=== PATIENT | male | born 1980 | race Two or more races ===

== ENCOUNTER 2020-01-14 15:08 | Inpatient (IN) | payer SELFPAY ==
[~2020-01-14] VITALS: Ht 167.6 cm; Wt 78.9 kg
--- NOTE | 2020-01-14 15:11 | NUR ---
ED Nurse Note: Patient BRITANY from the street d/t 8-03/19 painful open sores on distal soles of bilateral feet. Patient has been walking around outside barefoot for days and states that the pain has worsened to the point that he is seeking care in the ED. Patient has hx of alcoholism and hyptertension. AxO x 4, no s/s of acute distress.
[2020-01-14] MEDS ORDERED: Neosporin Oint Ud Pkt TOP ONE (15:15)
[2020-01-14] MEDS ORDERED: Tetanus/Diptheria/Pertussis IM ONE (15:15)
[2020-01-14] MEDS ORDERED: Ketorolac 30mg Inj IV ONE (15:15)
[2020-01-14] MEDS ORDERED: Sulfacetamide 10% Opth 15ml Btl BOTH EYES ONE (15:15)
[2020-01-14] MEDS ORDERED: no home meds (15:21)
--- NOTE | 2020-01-14 15:31 | NUR ---
ED Nurse Note: 20 g IV started in right AC, blood drawn and sent to lab.
--- NOTE | 2020-01-14 15:33 | NUR ---
ED Nurse Note: x-ray at bedside.
[2020-01-14] MEDS ORDERED: Hydrogen Peroxide 473ml Bottle TOPIC ONE ×2 (15:37→15:58)
[2020-01-14] MEDS ORDERED: Sulfacetamide 10% Opth 15ml Btl ONE (15:40)
[2020-01-14 15:42] LABS: HEMATOCRIT 41.6 % (42.0-52.0); HEMOGLOBIN 14.5 G/DL (14.2-18.0); MEAN CORPUSCULAR VOLUME 95 FL (80-99); PLATELET COUNT 92 K/UL (150-450); RED BLOOD COUNT 4.39 M/UL (4.70-6.10); RED CELL DISTRIBUTION WIDTH 12.6 % (11.6-14.8); WHITE BLOOD COUNT 7.5 K/UL (4.8-10.8)
[2020-01-14 15:43] LABS: EOSINOPHILS % (AUTO) 1.6 % (0.0-3.0); LYMPHOCYTES % (AUTO) 32.2 % (20.0-45.0); MONOCYTES % (AUTO) 8.1 % (1.0-10.0)
[2020-01-14 16:00] LABS: ANION GAP 14 mmol/L (5-15); BLOOD UREA NITROGEN 9 mg/dL (7-18); CARBON DIOXIDE 27 MMOL/L (21-32); CHLORIDE 100 MMOL/L (98-107); POTASSIUM 3.5 MMOL/L (3.5-5.1); SODIUM 140 MMOL/L (136-145)
--- NOTE | 2020-01-14 16:09 | Emergency Room Report ---
History of Present Illness General Chief Complaint: General Complaint Source: Patient Present Illness HPI Patient brought by EMS for sores on his feet. States he is having difficulty ambulating at this time. There is also been drainage. Patient denies any fevers or chills recently but he is felt increased weakness. The patient drinks alcohol daily. He has been drinking today. He will not say what alcohol he does drink. Denies any nausea, vomiting or diarrhea. Denies any sore throat, cough, chest pain or abdominal pain. He has been moving his bowels without difficulty denies melena. He reports the pain is 3/10 in his foot. It is aching and worse when he tries to stand. No sore throat, palpitations, dysuria, shortness of breath, depression, anxiety , visual changes, dizziness, headache. Allergies: Coded Allergies: No Known Allergies (Unverified , 01/14/20) COVID-19 Screening Contact w/high risk pt: No Experienced COVID-19 symptoms?: No COVID-19 Testing performed FOOD SERVICE DIRECTOR: No Patient History Past Medical History: see triage record Social History: Reports: alcohol use; Denies: smoking, drug use Social History Narrative Living on the streets Reviewed Nursing Documentation: PMH: Agreed; PSxH: Agreed Nursing Documentation-PMH Past Medical History: No History, Except For Hx Hypertension: Yes Review of Systems All Other Systems: negative except mentioned in HPI Physical Exam Vital Signs Date Time Temp Pulse Resp B/P (MAP) Pulse Ox O2 Delivery O2 Flow Rate FiO2 01/14/20 15:05 98.1 92 16 133/77 (95) 96 Room Air Sp02 EP Interpretation: reviewed, normal General Appearance: no apparent distress, GCS 15, other - Plethoric Head: normocephalic, atraumatic Eyes: bilateral eye PERRL, bilateral eye EOMI, bilateral eye Scleral Injection , bilateral eye other - green d/c bilat ENT: moist mucus membranes Neck: full range of motion, supple, no meningismus Respiratory: lungs clear, normal breath sounds Cardiovascular #1: no edema, tachycardia Cardiovascular #2: 2+ radial (L), 2+ dorsalis pedis (R) - Good capillary fill, 2+ dorsalis pedis (L) - Good capillary fill Gastrointestinal: non tender, soft, overweight Genitourinary: no CVA tenderness Musculoskeletal: back normal, normal range of motion, swelling - Bilateral feet Neurologic: alert, motor strength/tone normal, manager outreach III-XII nml as tested, oriented - X2, sensory intact, cerebellar normal, speech normal Psychiatric: mood/affect normal Skin: warm/dry, other - Bilateral foot blisters with left with drainage and discoloration Medical Decision Making Diagnostic Impression: Primary Impression: Sepsis Qualified Codes: A41.9 - Sepsis, unspecified organism Additional Impressions: Cellulitis of foot Alcohol intoxication Qualified Codes: F10.929 - Alcohol use, unspecified with intoxication, unspecified Elevated lipase Conjunctivitis Qualified Codes: H10.33 - Unspecified acute conjunctivitis, bilateral Rhabdomyolysis Qualified Codes: T79.6XXA - Traumatic ischemia of muscle, initial encounter ER Course Patient presents with bilateral foot pain history of alcohol ingestion. Differential includes osteomyelitis, cellulitis, infected blisters, sepsis amongst others. In addition the patient appears to be mildly under the influence of alcohol. In addition his eyes appear to be infected with conjunctivitis. Evaluation with EKG, chest x-ray, foot x-rays and labs. Blood cultures and wound culture will be obtained. Patient treated with IV hydration , tetanus vaccination, bacitracin and cleaning of wounds. EKG was sinus tachycardia. Chest x-ray no infiltrates. Left foot x-ray with soft tissue swelling without gas or apparent involvement of the bones. Normal white count. Elevated sed rate. Elevated lipase. Elevated liver function tests. COVID-19 test negative. Called with elevated lactic acid 1605. Bolus ordered and broadened antibiotics. Patient improved with decreased lactic acid. Patient admitted to medical floor for continued antibiotics and wound care. Laboratory Tests Test 01/14/20 15:25 01/14/20 15:30 01/14/20 16:12 White Blood Count 7.5 K/UL (4.8-10.8) Red Blood Count 4.39 M/UL (4.70-6.10) L Hemoglobin 14.5 G/DL (14.2-18.0) Hematocrit 41.6 % (42.0-52.0) L Mean Corpuscular Volume 95 FL (80-99) Mean Corpuscular Hemoglobin 33.0 PG (27.0-31.0) H Mean Corpuscular Hemoglobin Concent 34.9 G/DL (32.0-36.0) Red Cell Distribution Width 12.6 % (11.6-14.8) Platelet Count 92 K/UL (150-450) L Mean Platelet Volume 6.9 FL (6.5-10.1) Neutrophils (%) (Auto) 57.0 % (45.0-75.0) Lymphocytes (%) (Auto) 32.2 % (20.0-45.0) Monocytes (%) (Auto) 8.1 % (1.0-10.0) Eosinophils (%) (Auto) 1.6 % (0.0-3.0) Basophils (%) (Auto) 1.0 % (0.0-2.0) Erythrocyte Sedimentation Rate 30 MM/HR (0-15) H Prothrombin Time 11.0 SEC (9.30-11.50) Prothrombin Time INR 1.0 (0.9-1.1) Activated Partial Thromboplast Time 28 SEC (23-33) Sodium Level 140 MMOL/L (136-145) Potassium Level 3.5 MMOL/L (3.5-5.1) Chloride Level 100 MMOL/L (98-107) Carbon Dioxide Level 27 MMOL/L (21-32) Anion Gap 14 mmol/L (5-15) Blood Urea Nitrogen 9 mg/dL (7-18) Creatinine 1.0 MG/DL (0.55-1.30) Estimated Glomerular Filtration Rate > 60 mL/min (>60) Glucose Level 104 MG/DL (74-106) Lactic Acid Level 3.20 mmol/L (0.4-2.0) H 3.10 mmol/L (0.66-2.22) H Calcium Level 9.0 MG/DL (8.5-10.1) Phosphorus Level 3.0 MG/DL (2.5-4.9) Magnesium Level 2.2 MG/DL (1.8-2.4) Total Bilirubin 1.2 MG/DL (0.2-1.0) H Direct Bilirubin 0.4 MG/DL (0.0-0.3) H Aspartate Amino Transferase (AST) 143 U/L (15-37) H Alanine Aminotransferase (ALT) 85 U/L (12-78) H Alkaline Phosphatase 117 U/L (46-116) H Total Creatine Kinase 2746 U/L (26-308) H Troponin I 0.000 ng/mL (0.000-0.056) C-Reactive Protein, Quantitative 4.2 mg/dL (0.00-0.90) H Pro-B-Type Natriuretic Peptide 24 pg/mL (0-125) Total Protein 8.5 G/DL (6.4-8.2) H Albumin 4.2 G/DL (3.4-5.0) Globulin 4.3 g/dL Albumin/Globulin Ratio 1.0 (1.0-2.7) Lipase 648 U/L (73-393) H Serum Alcohol 267 mg/dL Urine Color Yellow Urine Appearance Clear Urine pH 6 (4.5-8.0) Urine Specific [place] 1.010 (1.005-1.035) Urine Protein Negative (NEGATIVE) Urine Glucose (UA) Negative (NEGATIVE) Urine Ketones 1+ (NEGATIVE) H Urine Blood Negative (NEGATIVE) Urine Nitrite Negative (NEGATIVE) Urine Bilirubin Negative (NEGATIVE) Urine Urobilinogen 1 MG/DL (0.0-1.0) H Urine Leukocyte Esterase Negative (NEGATIVE) Urine Opiates Screen Negative (NEGATIVE) Urine Barbiturates Screen Negative (NEGATIVE) Phencyclidine (PCP) Screen Negative (NEGATIVE) Urine Amphetamines Screen Negative (NEGATIVE) Urine Benzodiazepines Screen Negative (NEGATIVE) Urine Cocaine Screen Negative (NEGATIVE) Urine Marijuana (THC) Screen Negative (NEGATIVE) Microbiology Date/Time Source Procedure Growth Status 01/14/20 16:12 Nasopharynx SARS-CoV-2 RdRp Gene Assay - Final Complete EKG Diagnostic Results Rate: tachycardiac Rhythm: NSR ST Segments: no acute changes Rhythm Strip Diag. Results EP Interpretation: yes Rhythm: no PVC's, no ectopy, other - Tachycardia Chest X-Ray Diagnostic Results Chest X-Ray Diagnostic Results : Chest X-Ray Ordered: Yes # of Views/Limited/Complete: 1 View Indication: Other EP Interpretation: Yes Interpretation: no consolidation, no effusion, no pneumothorax Impression: No acute disease Electronically Signed by: Electronically signed by Mushtaq Josue MD Other X-Ray Diagnostic Results Other X-Ray Diagnostic Results #1: X-Ray ordered: Left foot # of Views/Limited Vs Complete: 2 View Indication: Other EP Interpretation: Yes Interpretation: no dislocation, no fractures, other - Soft tissue swelling no gas Impression: Other Electronically Signed by: Electronically signed by Mushtaq Josue MD Other X-Ray Diagnostic Results #2: X-Ray ordered: Right foot # of Views/Limited Vs Complete: 2 View Indication: Pain EP Interpretation: Yes Interpretation: no dislocation, no soft tissue swelling, no fractures Impression: No acute disease Electronically Signed by: Electronically signed by Mushtaq Josue MD Last Vital Signs Date Time Temp Pulse Resp B/P (MAP) Pulse Ox O2 Delivery O2 Flow Rate FiO2 01/14/20 15:05 98.1 92 16 133/77 (95) 96 Room Air Status: improved Disposition: ADMITTED INPATIENT Condition: Serious Referrals: NOT CHOSEN IPA/,REFERRING (PCP) Mushtaq Josue MD Jan 14, 2020 16:09
--- NOTE | 2020-01-14 16:09 | Diagnostic Imaging Report ---
Indication: Foot pain, laceration Technique: XRAY Foot 2v R Comparison: None. Findings: There is a mild hallux valgus with bunion deformity of the first metatarsal. Osseous structures appear intact. No fracture. No bone destruction. Impression: Mild hallux valgus with bunion deformity of the first metatarsal.
--- NOTE | 2020-01-14 16:10 | Diagnostic Imaging Report ---
Indication: Chest pain Technique: XRAY Chest 1v Comparison: None. Findings: The patient has taken a poor inspiration. The cardiomediastinal silhouette is normal. The lungs are clear. There is no evidence of pleural fluid. The bony structures are unremarkable. Impression: Poor inspiratory chest. Otherwise grossly negative.
--- NOTE | 2020-01-14 16:10 | Diagnostic Imaging Report ---
Indication: Foot pain, laceration Technique: XRAY Foot 2v L Comparison: None. Findings: The osseous structures are intact. There is no fracture or destruction. The visualized joints are normal. The soft tissues are unremarkable. Impression: Negative examination.
[2020-01-14 16:15] VITALS: BP 133/77
[2020-01-14 16:15] LABS: ALANINE AMINOTRANSFERASE 85 U/L (12-78); ALBUMIN 4.2 G/DL (3.4-5.0); ALKALINE PHOSPHATASE 117 U/L (46-116); ASPARTATE AMINO TRANSFERASE 143 U/L (15-37); BILIRUBIN,TOTAL 1.2 MG/DL (0.2-1.0); CREATINE KINASE 2746 U/L (26-308)
[2020-01-14] MEDS ORDERED: Piperacillin/Tazobactam 3.375 GM in NS 110 ML IVPB ONE (16:15)
[2020-01-14] MEDS ORDERED: Vancomycin 1 GM in NS 275 ML IVPB ONE (16:15)
[2020-01-14 16:16] LABS: BILIRUBIN,DIRECT 0.4 MG/DL (0.0-0.3)
[2020-01-14 16:25] LABS: BILIRUBIN, URINE NEGATIVE (NEGATIVE); GLUCOSE, URINE (UA) NEGATIVE (NEGATIVE); KETONES,URINE 1+ (NEGATIVE); LEUKOCYTE ESTERASE ,URINE NEGATIVE (NEGATIVE); NITRITE,URINE NEGATIVE (NEGATIVE); PH,URINE 6 (4.5-8.0); PROTEIN,URINE NEGATIVE (NEGATIVE); UROBILINOGEN,URINE 1 MG/DL (0.0-1.0)
[2020-01-14 16:26] LABS: APPEARANCE,URINE CLEAR; COLOR,URINE YELLOW
--- NOTE | 2020-01-14 16:28 | NUR ---
ED Nurse Note: lactic reflex and covid rapid collected, sent to labs.
--- NOTE | 2020-01-14 16:38 | NUR ---
ED Nurse Note: wound culture on LT foot sent, confirmed with greens laborer.
[2020-01-14] MEDS ORDERED: levETIRAcetam 500mg/NS100ml 100 ML IVPB ONE (17:45)
[2020-01-14] MEDS ORDERED: Insulin Human Regular 100units/ml 3ml IV ONE (17:45)
--- NOTE | 2020-01-14 18:15 | NUR ---
ED Nurse Note: pt was transferred to med surg unit under the care of dr. williamson, report for transfer was given to taryn alexandre in med surg unit. pt was transferred on stable condition.
--- NOTE | 2020-01-14 18:28 | NUR ---
NURSE NOTES: Report received from Danielle CANDELARIA from the ER. Pt is AxOx2, Belarusian-speaking, disoriented, admitted for bilateral lower extremity cellulitis, pt is homeless and was brought in to ER by EMS. Swabbed for Covid and negative. Pt has Right AC G20 patent and intact. Vitals on admission: T97.5F, HR88, BP 151/98, O2 97%. Pt noted with blood blister over right foot. Will endorse admission to succeeding shift.
[2020-01-14 18:40] VITALS: BP 151/98
[2020-01-14] MEDS ORDERED: Nitroglycerin Subl 0.4mg tab SL PRN (18:45)
[2020-01-14] MEDS ORDERED: Albuterol/Ipratropium 3ml neb HHN PRN (18:45)
[2020-01-14] MEDS ORDERED: Miralax 17gm pkt ORAL PRN (18:45)
--- NOTE | 2020-01-14 19:00 | NUR ---
NURSE NOTES: Report received from BARI West.
--- NOTE | 2020-01-14 19:00 | NUR ---
Received pt. in bed, awake, alert and verbally responsive, with confusion and disorientation noted. No sob noted. ComplaIned of mild pain on kathleen. foot, 3/10 but don't want pain meds at this time. With dressing on foot, dry and intact. Slept @ intervals. Kept warm and comfortable at all times. On ivatb, without a/r noted. Will continue to monitor.
--- NOTE | 2020-01-14 19:11 | NUR ---
HAND-OFF: Report given to Morgan CANDELARIA.
[2020-01-14] MEDS: Heparin 5000 units/ml inj SUBQ SCH (21:00)
[2020-01-14] MEDS: Cefepime HCl 2 GM in D5W 110 ML IV SCH (21:09)
[2020-01-15] VITALS: BP 141/81
--- NOTE | 2020-01-15 03:35 | NUR ---
Wound dressing done on both feet with scattered blisters, intact. Kept clean and dry.
[2020-01-15 04:00] VITALS: BP 145/76
[2020-01-15] MEDS: Vancomycin 1 GM in D5W 275 ML IVPB SCH ×2 (04:00→16:57)
[2020-01-15 06:30] LABS: HEMOGLOBIN 13.8 G/DL (14.2-18.0); MEAN CORPUSCULAR VOLUME 98 FL (80-99); PLATELET COUNT 92 K/UL (150-450); RED BLOOD COUNT 4.18 M/UL (4.70-6.10); RED CELL DISTRIBUTION WIDTH 13.1 % (11.6-14.8); WHITE BLOOD COUNT 4.1 K/UL (4.8-10.8)
[2020-01-15 06:54] LABS: ALANINE AMINOTRANSFERASE 69 U/L (12-78); ALBUMIN 3.6 G/DL (3.4-5.0); ALBUMIN/GLOBULIN RATIO 0.9 (1.0-2.7); ALKALINE PHOSPHATASE 104 U/L (46-116); ANION GAP 8 mmol/L (5-15); ASPARTATE AMINO TRANSFERASE 101 U/L (15-37); BILIRUBIN,TOTAL 1.3 MG/DL (0.2-1.0); BLOOD UREA NITROGEN 8 mg/dL (7-18); CALCIUM 8.7 MG/DL (8.5-10.1); CARBON DIOXIDE 30 MMOL/L (21-32); CHLORIDE 106 MMOL/L (98-107); CREATININE 0.9 MG/DL (0.55-1.30); POTASSIUM 3.7 MMOL/L (3.5-5.1); SODIUM 144 MMOL/L (136-145)
[2020-01-15 06:55] LABS: BILIRUBIN,DIRECT 0.3 MG/DL (0.0-0.3)
--- NOTE | 2020-01-15 07:25 | NUR ---
NURSE NOTES: Pt report received from BARI Vann. Pt received lying in hospital bed, AAO x 4, [place] speaking only, able to make needs known. Pt is ambulatory but currently on bedrest d/t blisters on B soles and heels. Pt is unable to recall LBM. Good appetite, finished all his breakfast. Uses urinal. pIV to R AC 20g. Blisters to B feet. Bed in lowest position, reinforced fall precautions, call light within reach. Will continue to f/u.
--- NOTE | 2020-01-15 07:25 | NUR ---
HAND-OFF: Report given to Otilio CANDELARIA.
[2020-01-15 08:00] VITALS: BP 139/79
[2020-01-15] MEDS: Heparin 5000 units/ml inj SUBQ SCH ×2 (09:00→20:10)
[2020-01-15] MEDS: Cefepime HCl 2 GM in D5W 110 ML IV SCH ×2 (09:54→20:42)
[2020-01-15 12:00] VITALS: BP 159/96
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
--- NOTE | 2020-01-15 14:56 | NUR ---
CASE MANAGEMENT:INITIAL REVIEW 39 YR OLD MALE BIBA FROM [facility];GENERAL COMPLAINT SI;LT FOOT CELLULITIS. ETOH INTOXICATION. ELEVATED LIPASE. RHABDOMYOLYSIS. 98.1 92 20 151/98 96% ON RA T-BILI 101 AST 143 ALT 85 TCK 2746 LIPASE 648 UA+ KETONES, UROBILINOGEN UA TOX ~ ETOH SERUM 267 COVID PCR RAPID ~ NEGATIVE R FOOT X-RAY ~ Mild hallux valgus with bunion deformity of the first metatarsal. L FOOT X-RAY ~ NEGATIVE EXAMINATION CXR ~ Poor inspiratory chest. Otherwise grossly negative. LT FOOT WOUND CX ~ FEW GRAM (+) COCCI, RARE WBC IS;NEOMYCIN TOP TORADOL IV TDAP VANCOMYCIN IV ZOSYN IV IVF NS INSULIN REGULAR SUBQ KEPPRA IV ADMITTED TO MED SURG 01/14/20 @ 2004 MED SURG STATUS DCP;HOMELESS
[2020-01-15] MEDS ORDERED: LORazepam 1mg tab ORAL PRN (15:15)
[2020-01-15 16:00] VITALS: BP 133/92
[2020-01-15] MEDS: Thiamine HCl 100 MG in D5W 55 ML IVPB SCH (18:37)
--- NOTE | 2020-01-15 19:33 | History & Physical ---
History and Physical History & Physicial dictation number: [id number] Linwood Paulson MD Jan 15, 2020 19:33
--- NOTE | 2020-01-15 19:40 | NUR ---
HAND-OFF: Report given to BARI Padgett. Endorsed POC.
--- NOTE | 2020-01-15 19:50 | NUR ---
NURSE NOTES: Patient in bed, A&O x4. On room air with no signs of distress or SOB. Bilateral foot dressings dry and intact; feet elevated. IV intact and patent. Bed locked and in lowest position, call light within reach. Will continue to follow plan of care.
[2020-01-15 20:00] VITALS: BP 137/81
[2020-01-16] VITALS: BP 132/87
--- NOTE | 2020-01-16 03:30 | History and Physical Report ---
DATE OF ADMISSION: 01/14/2020 CHIEF COMPLAINT: Bilateral lower extremity infection. HISTORY OF PRESENT ILLNESS: This is a 39-year-old gentleman with history of alcohol abuse, who presented to the hospital complaining about bilateral lower extremity infection. The patient is having difficulty ambulating due to the pain, heaviness, sore in the legs with drainage. Denies any fever or chills, complained of weakness. He has been drinking alcohol on a daily basis and last alcohol was yesterday. The patient will not say what kind of alcohol he has been drinking. Denies any nausea, vomiting or diarrhea. Denies any chest pain or shortness of breath. Shortly after initial evaluation emergency, the patient was admitted to the hospital with bilateral lower extremity infection with possible abscess. PAST MEDICAL/SURGICAL HISTORY: Alcoholism and hypertension. MEDICATIONS: Home is none. SOCIAL HISTORY: The patient alcohol abuse. Denies any substance or smoking. FAMILY HISTORY: Noncontributory. REVIEW OF SYSTEMS: Mostly as above. PHYSICAL EXAMINATION: VITAL SIGNS: On admission, temperature 98.1, pulse of 92, respirations 16, and blood pressure 133/77. GENERAL: The patient awake, responsive, no acute distress. HEAD AND NECK: Pupils are reactive to light. Extraocular movements intact. Neck was supple. No JVD. LUNGS: Clear. No wheezing or rales. HEART: S1, S2. Regular rhythm. No gallops. ABDOMEN: Soft, nondistended and nontender. Positive bowel sounds. EXTREMITIES: No cyanosis or clubbing. The patient has bilateral lower extremity dorsum of foot blisters with the hemorrhagic and tender to touch and surrounding erythema. NEUROLOGIC: Cranial nerves II through XII grossly normal. The patient moves all the extremities. Gait was not assessed due to the patient's status. LABORATORY AND DIAGNOSTIC DATA: Laboratory on admission from the emergency room, WBC of 7.5, hemoglobin of 14, hematocrit 41, platelet is 92. Sodium 140, potassium 3.5, chloride 100, bicarb 27, BUN 9, creatinine 1.0. Lactic acid is 3.2, repeat was 3.1. Total bilirubin of 1.2, direct bilirubin of 0.4. AST of 134, ALT of 85, alkaline phosphatase was 117, total CK is 2746, troponin is 0.0. CRP of 4.2. Albumin is 4.2. Lipase is 648. Urine drug screen is negative. Serum alcohol level is 267. Urinalysis +1, ketone 1 urine bilirubin, negative nitrate, PT 11, INR 1.0, PTT of 28. The patient has a x-ray of the foot and mild valgus with bunion deformity of the first metatarsal. X-ray of the right foot negative examination. Chest x-ray, poor inspiratory chest, otherwise grossly negative. ASSESSMENT: 1. Bilateral lower extremity infected possible abscess. 2. Alcoholism. 3. Abnormal liver function with transaminitis, most likely secondary to alcoholism. 4. Thrombocytopenia. 5. Dysuria. PLAN: Admit the patient to medical floor. We start the patient on broad-spectrum antibiotics with vancomycin and cefepime, alcohol withdrawal precautions, heparin 5000 q.12 for DVT prophylaxis. Code status is Full Code and I start the patient on folic acid and thiamine. Follow up with the Podiatry as well as Infectious Disease consultation in the morning. Linwood Paulson M.D. DR: Jose JOB#: [id number] CC:
[2020-01-16] MEDS: Vancomycin 1 GM in D5W 275 ML IVPB SCH (03:36)
[2020-01-16 04:00] VITALS: BP 143/80
--- NOTE | 2020-01-16 07:15 | NUR ---
NURSE NOTES: Pt report received from BARI Padgett. Pt received lying in hospital bed, AAO x 4, Japanese speaking only, able to make needs known. Pt is ambulatory able to walk to bathroom independently. Good appetite. Pt has dark colored blisters on B soles and plantar toes. LBM 01/15/20. Uses urinal. pIV to R AC 20g. Bed in lowest position, reinforced fall precautions, call light within reach. Will continue to f/u.
--- NOTE | 2020-01-16 07:19 | NUR ---
HAND-OFF: Report given to BARI Yañez.
[2020-01-16 08:00] VITALS: BP 127/85
[2020-01-16] MEDS: Heparin 5000 units/ml inj SUBQ SCH ×2 (09:00→20:30)
[2020-01-16] MEDS: Cefepime HCl 2 GM in D5W 110 ML IV SCH ×2 (09:34→20:34)
[2020-01-16 12:00] VITALS: BP 133/86
[2020-01-16] MEDS: Vancomycin 1.25gm/NS Premix IVPB SCH ×2 (12:21→23:49)
--- NOTE | 2020-01-16 14:46 | Internal Med Progress Note ---
Subjective Date of Service: Jan 16, 2020 Physician Name MartinezTheo Attending Physician Linwood Paulson MD Current Medications Medications (Trade) Dose Ordered Sig/Justine Route PRN Reason Start Time Stop Time Status Last Admin Dose Admin Acetaminophen (Tylenol) 650 mg Q4H PRN ORAL fever (T>100.5) 01/14/20 18:45 02/13/20 18:44 01/15/20 08:13 Albuterol/ Ipratropium (Albuterol/ Ipratropium) 3 ml Q4H PRN HHN Shortness of Breath 01/14/20 18:45 01/19/20 18:44 Cefepime HCl 2 gm/ Dextrose 110 ml @ 220 mls/hr EVERY 12 HOURS IV 01/14/20 21:00 01/21/20 20:59 01/16/20 09:34 Dextrose (Dextrose 50%) 25 ml Q30M PRN IV Hypoglycemia 01/14/20 18:45 04/13/20 18:44 Dextrose (Dextrose 50%) 50 ml Q30M PRN IV Hypoglycemia 01/14/20 18:45 04/13/20 18:44 Folic Acid (Folate) 1 mg DAILY ORAL 01/16/20 09:00 02/15/20 08:59 01/16/20 09:34 Heparin Sodium (Porcine) (Heparin 5000 units/ml) 5,000 units EVERY 12 HOURS SUBQ 01/14/20 21:00 02/28/20 20:59 Lorazepam (Ativan) 1 mg Q6H PRN ORAL For Anxiety 01/15/20 15:15 01/22/20 15:14 01/16/20 03:36 Nitroglycerin (Ntg) 0.4 mg Q5M PRN SL Prn Chest Pain 01/14/20 18:45 02/13/20 18:44 Ondansetron HCl (Zofran) 4 mg Q6H PRN IVP Nausea & Vomiting 01/14/20 18:45 02/13/20 18:44 Polyethylene Glycol (Miralax) 17 gm DAILYPRN PRN ORAL Constipation 01/14/20 18:45 02/13/20 18:44 Temazepam (Restoril) 15 mg HSPRN PRN ORAL Insomnia 01/14/20 18:45 01/21/20 18:44 01/15/20 20:50 Thiamine HCl 100 mg/Dextrose 56 ml @ 112 mls/hr Q24H IVPB 01/15/20 17:00 02/14/20 16:59 01/15/20 18:37 Vancomycin HCl (Vanco pharmacy to dose) 1 ea DAILY PRN MISC per RX protocol 01/14/20 18:45 02/13/20 18:44 Vancomycin/Sodium Chloride 275 ml @ 183.333 mls/hr Q12HR@0000,1200 IVPB 01/16/20 12:00 01/21/20 11:59 01/16/20 12:21 Allergies: Coded Allergies: No Known Allergies (Unverified , 01/14/20) ROS Limited/Unobtainable: No Constitutional: Reports: no symptoms HEENT: Reports: no symptoms Cardiovascular: Reports: no symptoms Respiratory: Reports: no symptoms Gastrointestinal/Abdominal: Reports: no symptoms Genitourinary: Reports: no symptoms Neurologic/Psychiatric: Reports: no symptoms Subjective 39 YO M admitted with left foot pain. Now cellulitis left foot. Cover for Int med-Dr Paulson Objective Last Vital Signs Date Time Temp Pulse Resp B/P (MAP) Pulse Ox O2 Delivery O2 Flow Rate FiO2 01/16/20 12:00 97.0 76 20 133/86 (102) 96 01/16/20 09:00 Room Air 01/15/20 08:12 21 Laboratory Tests Test 01/16/20 03:00 Vancomycin Level Trough 8.1 ug/mL (5.0-12.0) Microbiology Date/Time Source Procedure Growth Status 01/14/20 15:25 Blood Blood Culture - Preliminary NO GROWTH AFTER 24 HOURS Resulted 01/14/20 15:00 Blood Blood Culture - Preliminary NO GROWTH AFTER 24 HOURS Resulted 01/14/20 16:12 Nasopharynx SARS-CoV-2 RdRp Gene Assay - Final Complete 01/14/20 15:20 Foot Left Gram Stain - Final Complete 01/14/20 15:20 Wound Culture - Final Staphylococcus Sp Coag Neg Diphtheroids Complete Intake and Output 01/15/20 01/16/20 19:00 07:00 Intake Total 1610 ml 1056 ml Output Total 750 ml 1800 ml Balance 860 ml -744 ml Intake Oral 1500 ml 1000 ml IV Total 110 ml 56 ml Output Urine Total 750 ml 1800 ml # Voids 5 4 # Bowel Movements 1 Objective PHYSICAL EXAMINATION: GENERAL: The patient awake, responsive, no acute distress. HEAD AND NECK: Pupils are reactive to light. Extraocular movements intact. Neck was supple. No JVD. LUNGS: Clear. No wheezing or rales. HEART: S1, S2. Regular rhythm. No gallops. ABDOMEN: Soft, nondistended and nontender. Positive bowel sounds. EXTREMITIES: No cyanosis or clubbing. The patient has bilateral lower extremity dorsum of foot blisters with the hemorrhagic and tender to touch and surrounding erythema. NEUROLOGIC: Cranial nerves II through XII grossly normal. The patient moves all the extremities. Gait was not assessed due to the patient's stat Assessment/Plan Assessment/Plan ASSESSMENT: 1. Bilateral lower extremity infected possible abscess. 2. Alcoholism. 3. Abnormal liver function with transaminitis, most likely secondary to alcoholism. 4. Thrombocytopenia. 5. Dysuria. PLAN: Admit the patient to medical floor. We start the patient on broad-spectrum antibiotics with vancomycin and cefepime, alcohol withdrawal precautions, heparin 5000 q.12 for DVT prophylaxis. Code status is Full Code and I start the patient on folic acid and thiamine. Follow up with the Podiatry as well as Infectious Disease consultation in the morning. Theo Martinez MD Jan 16, 2020 14:46
[2020-01-16 16:00] VITALS: BP 137/85
[2020-01-16] MEDS: Thiamine HCl 100 MG in D5W 55 ML IVPB SCH (17:15)
--- NOTE | 2020-01-16 19:02 | NUR ---
HAND-OFF: Report given to KINDRA Jackson. Endorsed POC.
[2020-01-16 20:00] VITALS: BP 154/96
--- NOTE | 2020-01-16 20:00 | NUR ---
NURSE NOTES: RECEIVED PATIENT LYING IN BED, AWAKE, ALERT/ORIENTED X4, VERBALLY RESPONSIVE, DENIES PAIN. NO SIGNS AND SYMPTOMS OF ACUTE CARDIO RESPIRATORY DISTRESS/SHORTNESS OF BREATH, DENIES CHEST PAIN, NO PERIPHERAL EDEMA NOTED. IV INTACT TO RIGHT AC/GAUGE 20, FLUSHED FOR PATENCY, TOLERATED WELL. NO COMPLAINTS OF GI DISCOMFORT, NO N/V/D. SIDE RAILS UP X2, BED IN LOWEST POSITION FOR SAFETY, ENCOURAGED PATIENT TO UTILIZE CALL LIGHT FOR ASSISTANCE, VERBALIZED UNDERSTANDING. CONTINUE WITH CURRENT PLAN OF CARE. NAD.
--- NOTE | 2020-01-16 21:00 | NUR ---
NURSE NOTES: DRESSING CHANGE TO BILATERAL FEET, TOLERATED WELL.
[2020-01-17] VITALS: BP 144/91
--- NOTE | 2020-01-17 03:30 | NUR ---
AMA: SEE AMA FORM. PATIENT DEPARTED [facility] AGAINST MEDICAL ADVICE; EXPLAINED RISKS AND CONSEQUENCES INVOLVED IN LEAVING THE HOSPITAL AT THIS TIME, PERSONAL BELONGINGS GIVEN TO PATIENT, IV AND NAME BAND REMOVED, PATIENT ESCORTED OUT OF FACILITY BY BARI MAURICE, STRANNER MADE AWARE.
--- NOTE | 2020-01-17 03:30 | NUR ---
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 RN BELEN GILES SPOKE WITH THE PATIENT IN [place] AT BEDSIDE BUT PATIENT ADAMANT WANTED TO LEAVE.
--- NOTE | 2020-01-17 04:20 | NUR ---
NURSE NOTES:message left for dr clay yañez, no call back
--- NOTE | 2020-01-18 12:11 | Discharge Summary ---
Discharge Summary Discharge Summary _ DATE OF ADMISSION: 01/14/2020 DATE OF DISCHARGE: 01/17/2020 Patient left AGAINST MEDICAL ADVICE REASON FOR ADMISSION: 39 years old male with history of alcohol abuse, hypertension, presented to the hospital complaining of bilateral lower extremity infection with some drainage. Patient reported difficulty ambulating due to pain, heaviness and soreness in his legs . He denied fever and chills. He reported drinking alcohol on a daily basis. Last alcohol drink was the day before presentation to ED. Patient denied nausea ,vomiting or diarrhea. He denied chest pain or shortness of breath. Upon evaluation vital signs were stable. Laboratory work-up revealed no leukocytosis , stable hemoglobin and hematocrit. Platelet count 92. ESR 30. Stable electrolytes and renal parameters. Lactic acid 3.2 , repeated 3.1. Total bilirubin 1.2 , direct bilirubin 0.4, AST 143, ALT 85. Alkaline phosphatase 117. Total CK 2746. Troponin negative. CRP 4.2. Lipase 648. Urine toxicology screen was negative. Serum alcohol was 267 X-ray of the right foot revealed mild hallux valgus with bunion deformity of the first metatarsal, but no fracture or bone destruction. X-ray of the left foot was negative. Chest x-ray was grossly negative. Rapid COVID-19 in ED was negative In ED patient received topical treatment , analgesic, Tdap vaccine , 1 L of fluid empiric antibiotics and admitted for further management of bilateral lower extremity infection and possible abscess. HOSPITAL COURSE: Patient admitted to medical surgical floor. Patient started on empiric antibiotics. DVT prophylaxis provided. Alcohol withdrawal precaution maintained. Patient started on folic acid and thiamine. Podiatry and ID consults were requested. Elevated LFTs were likely due to alcoholism, slowly trending down. Platelet count remained the same . Blood cultures were negative. Wound culture revealed diphtheroids and Staph coag negative. Antibiotics continued. aged or disabled care worker met with patient . Patient accepted community resource packet and the list of emergency shelters. Patient was encouraged to [facility] [place] [facility]. Patient provided with clothes and shoes. On 01/16 patient decided to leave AGAINST MEDICAL ADVICE. The risks and consequences of signing AGAINST MEDICAL ADVICE were discussed with patient in detail. Patient verbalized understanding, nevertheless signed AMA form and left. FINAL DIAGNOSES: Bilateral lower extremity infection , possible abscess Alcoholism Abnormal liver function with transaminitis , most likely secondary to alcoholism Thrombocytopenia I have been assigned to dictate discharge summary for this account. I was not involved in the patient's management. Ximena Esqueda NP Jan 18, 2020 12:11
== END 2020-01-17 03:30 | disposition left against medical advice (07) | DRG 603 ==
LOC: EDBD 15:08 → EMR 15:20 → 4E 16:25 → EDBEDREQ 17:24
DX: L02.416 Cutaneous abscess of left lower limb (principal); L02.415 Cutaneous abscess of right lower limb; F10.20 Alcohol dependence, uncomplicated; D69.6 Thrombocytopenia, unspecified; B95.7 Other staphylococcus as the cause of diseases classified elsewhere; Z59.0 Homelessness
CPT/HCPCS: 36415; 71045; 80053; 80202; 80307; 81003; 82248; 82550; 83605; 83690; 83735; 83880; 84100; 84484; 85025; 85610; 85651; 85730; 86140; 87040; 87070; 87205; 90471; 90715; 93005; 94664; 96361; 96365; 96368; 96375; 99285; G0480; J7030; U0002